=== PATIENT | male | born 1980 | race Caucasian/White ===

== ENCOUNTER 2017-02-05 17:37 | Emergency (ER) | payer OTHER ==
[2017-02-05 17:53] VITALS: O2SAT 99
--- NOTE | 2017-02-05 18:20 | ERPHSYRPT ---
- History of Present Illness Time Seen by Provider: 02/05/17 18:10 Source: patient Exam Limitations: no limitations Patient Subjective Stated Complaint: "bit by a spider on sunday on my right arm" Triage Nursing Assessment: ambulated to room per self. skin w/d, color normal, resp easy. red raised area noted to right forearm. no drainage noted. Timing/Duration: day(s) (3) Quality: painful Severity: moderate Location: extremities Possible Causes: exposure to illness (Staph in home prior.), insect bite ( possibly. ) Modifying Factors: Improves With: scratching Associated Symptoms: swelling/mass/lumps Allergies/Adverse Reactions: codeine Allergy (Verified 02/05/17 17:53) Home Medications: Gabapentin 300 mg PO TID 09/30/15 [History] Sertraline HCl 100 mg [Zoloft 100 MG] 100 mg PO DAILY 09/30/15 [History] Albuterol 8 gm Mdi Hfa [Ventolin Hfa MDI] 2 puffs IH QID 10/01/15 [History ] Omeprazole 20 MG [Prilosec 20 mg] 20 mg PO DAILY 03/23/16 [History] Pnv with Ca,No.72/Iron/FA [Preplus Ca-Fe 27 mg-FA 1 mg Tb] 1 each PO DAILY 03/23 [History] Mesalamine [Pentasa] 1,000 mg PO QID 05/04/16 [History] Carvedilol 3.125 mg [Coreg 3.125 MG] 3.125 mg PO DAILY 02/05/17 [History] Fluticasone/Salmeterol 500/50* [Advair 500-50 Diskus] 1 each IH DAILY [History] Hydrocodone Bit/Acetaminophen [[place] 7.5-325 Tablet] 1 each PO TID 02/05/17 [ History] Tizanidine HCl 4 mg [Zanaflex 4 MG] 8 mg PO TID 02/05/17 [History] Trazodone HCl [Desyrel] 100 mg PO HS 02/05/17 [History] Hx Tetanus, Diphtheria Vaccination/Date Given: No Hx Influenza Vaccination/Date Given: No Hx Pneumococcal Vaccination/Date Given: No Immunizations Up to Date: No - Review of Systems Constitutional: No Symptoms Eyes: No Symptoms Ears, Nose, & Throat: No Symptoms Respiratory: No Symptoms Cardiac: No Symptoms Abdominal/Gastrointestinal: Constipation Musculoskeletal: No Symptoms Skin: Cellulitis Neurological: No Symptoms Psychological: No Symptoms Endocrine: No Symptoms Hematologic/Lymphatic: No Symptoms - Past Medical History Pertinent Past Medical History: Yes Neurological History: Migraines ENT History: No Pertinent History Cardiac History: No Pertinent History Respiratory History: COPD Endocrine Medical History: No Pertinent History Musculoskeletal History: Osteoarthritis GI Medical History: GERD History: No Pertinent History, Other Psycho-Social History: No Pertinent History Male Reproductive Disorders: No Pertinent History Other Medical History: Kidney failure, fractured R knee cap, hip and shoulder. - Past Surgical History Past Surgical History: Yes Neuro Surgical History: No Pertinent History Cardiac: No Pertinent History Respiratory: No Pertinent History Gastrointestinal: No Pertinent History Genitourinary: No Pertinent History Musculoskeletal: No Pertinent History Male Surgical History: No Pertinent History Other Surgical History: DENTAL EXTRACTIONS - Social History Smoking Status: Current every day smoker How long have you smoked: 23 Exposure to second hand smoke: Yes Drug Use: marijuana Patient Lives Alone: No - Nursing Vital Signs Nursing Vital Signs: Initial Vital Signs Temperature 99.3 F Temperature Source Oral Pulse Rate 69 Respiratory Rate 16 Pain Intensity 6 - Physical Exam General Appearance: mild distress Eye Exam: eyes nml inspection Ears, Nose, Throat Exam: normal ENT inspection, pharynx normal Neck Exam: normal inspection, non-tender, supple, full range of motion Respiratory Exam: normal breath sounds, lungs clear Cardiovascular Exam: regular rate/rhythm, normal heart sounds, normal peripheral pulses Gastrointestinal/Abdomen Exam: soft, normal bowel sounds Back Exam: normal inspection, normal range of motion Extremity Exam: normal range of motion, pelvis stable, inflammation, swelling ( 2 cm diameter to right distal wrist. ) Neurologic Exam: alert, oriented x 3, cooperative Skin Exam: warm, dry, other (erythema and tenderness right wrist. No drainage. ) SpO2 Interpretation: normal SpO2: 99 Oxygen Delivery: Room Air - Course Nursing assessment & vital signs reviewed: Yes - Progress Progress: unchanged Discussed with : [place] (PCP 1 week) Will see patient in: office Counseled pt/family regarding: diagnosis, need for follow-up - Departure Time of Disposition: 18:25 Departure Disposition: Home Clinical Impression: Abscess or cellulitis of wrist Condition: Stable Critical Care Time: No Prescriptions: Naproxen 1 tab PO BID #20 tablet Smz/Tmp Ds Tablet [Bactrim Ds Tablet] 1 udtab PO BID #20 tablet
[2017-02-05] MEDS ORDERED: Adacel Vial IM ONE ×2 (18:30→18:33)
[2017-02-05 18:50] VITALS: BP 143/96; PULSE 72
== END 2017-02-05 18:51 | disposition home or self-care (01) ==
LOC: ED 17:37
DX: L02.413 Cutaneous abscess of right upper limb (principal); L03.113 Cellulitis of right upper limb
CPT/HCPCS: 90471; 90715; 99284

== ENCOUNTER 2017-06-17 12:46 | Emergency (ER) | payer OTHER ==
[2017-06-17] MEDS ORDERED: Sodium Chloride 0.9% 1000 ML 1,000 ML IV STA (13:05)
[2017-06-17] MEDS ORDERED: Vistaril 50 MG/ML IM ONE ×2 (13:05→13:18)
[2017-06-17 13:08] VITALS: O2SAT 100
--- NOTE | 2017-06-17 13:12 | ERPHSYRPT ---
- History of Present Illness Time Seen by Provider: 06/17/17 12:56 Source: patient, family (friend) Patient Subjective Stated Complaint: states has had confusion, feels off balance and unable to focus for a couple months. has been off most of his meds for two weeks. states passed out last night and woke up covered in feces and urine. Triage Nursing Assessment: ambulated to room. patient slightly off balance. skin w/d, color normal, resp easy. patient a/o times three. yesika jc without difficulty. Physician History: CC: passed out Hx; 37 y/o patient states he thinks he passed out at home this AM. He awoke on the floor covered in feces and urine. He does not remember what happened. He has felt some dizzines and confused at times. Out of most of his medications for 3 weeks. He has hx of anxiety and depression. No headache, chest pain, or palpitations. He has hx of colitis. He sees Dr Herzog and [facility] in [facility] for chronic degenerative disk disease. No neck or back pain. No known specific injury. No hx of seizures or DM. Denies suicide ideation. Friend states he has been worried about finances. Timing/Duration: today Severity: moderate Allergies/Adverse Reactions: codeine Allergy (Verified 06/17/17 12:58) Home Medications: Gabapentin 300 mg PO TID 09/30/15 [History] Sertraline HCl 100 mg [Zoloft 100 MG] 100 mg PO DAILY 09/30/15 [History] Albuterol 8 gm Mdi Hfa [Ventolin Hfa MDI] 2 puffs IH QID 10/01/15 [History ] Omeprazole 20 MG [Prilosec 20 mg] 20 mg PO DAILY 03/23/16 [History] Pnv with Ca,No.72/Iron/FA [Preplus Ca-Fe 27 mg-FA 1 mg Tb] 1 each PO DAILY 03/23 [History] Mesalamine [Pentasa] 1,000 mg PO QID 05/04/16 [History] Fluticasone/Salmeterol 500/50* [Advair 500-50 Diskus] 1 each IH DAILY [History] Hydrocodone Bit/Acetaminophen [[place] 7.5-325 Tablet] 1 each PO TID 02/05/17 [ History] Tizanidine HCl 4 mg [Zanaflex 4 MG] 8 mg PO TID 02/05/17 [History] Trazodone HCl [Desyrel] 100 mg PO HS 02/05/17 [History] Hx Tetanus, Diphtheria Vaccination/Date Given: Yes (2016) Hx Influenza Vaccination/Date Given: No Hx Pneumococcal Vaccination/Date Given: No - Review of Systems Constitutional: No Fever, No Chills Eyes: No Symptoms Ears, Nose, & Throat: No Symptoms Respiratory: No Cough Cardiac: Syncope, No Chest Pain, No Palpitations Abdominal/Gastrointestinal: No Abdominal Pain, No Nausea, No Vomiting, No Diarrhea Genitourinary Symptoms: Dysuria Musculoskeletal: Back Pain (chronic), No Neck Pain, No Injury Skin: No Rash Neurological: Dizziness, Other (feels confused), No Focal Weakness, No Headache , No Parasthesia Psychological: Anxiety, Depression, No Alcohol Abuse, No Drug Abuse All Other Systems: Reviewed and Negative - Past Medical History Pertinent Past Medical History: Yes Neurological History: Migraines ENT History: No Pertinent History Cardiac History: No Pertinent History Respiratory History: COPD Endocrine Medical History: No Pertinent History Musculoskeletal History: Osteoarthritis GI Medical History: GERD History: No Pertinent History, Other Psycho-Social History: No Pertinent History Male Reproductive Disorders: No Pertinent History Other Medical History: Kidney failure, fractured R knee cap, hip and shoulder. - Past Surgical History Past Surgical History: Yes Neuro Surgical History: No Pertinent History Cardiac: No Pertinent History Respiratory: No Pertinent History Gastrointestinal: No Pertinent History Genitourinary: No Pertinent History Musculoskeletal: No Pertinent History Male Surgical History: No Pertinent History Other Surgical History: DENTAL EXTRACTIONS - Social History Smoking Status: Current every day smoker How long have you smoked: 24 Exposure to second hand smoke: No Drug Use: marijuana Patient Lives Alone: Yes - Nursing Vital Signs Nursing Vital Signs: Initial Vital Signs Temperature 98.6 F 06/17/17 12:51 Pulse Rate 69 06/17/17 12:51 Respiratory Rate 16 06/17/17 12:51 Blood Pressure 174/99 06/17/17 12:51 O2 Sat by Pulse Oximetry 100 06/17/17 12:51 Pain Scale Pain Intensity 9 - Physical Exam General Appearance: alert, thin Eye Exam: PERRL/EOMI Ears, Nose, Throat Exam: normal ENT inspection, moist mucous membranes Neck Exam: normal inspection, non-tender, supple, No midline tenderness Respiratory Exam: normal breath sounds, lungs clear Cardiovascular Exam: regular rate/rhythm, No murmur, No pulse deficit Gastrointestinal/Abdomen Exam: soft, No tenderness, No distention, No mass, No guarding Male Genitalia Exam: normal genitalia, No hernia Back Exam: normal inspection, normal range of motion Extremity Exam: normal inspection, normal range of motion Neurologic Exam: alert, oriented x 3, cooperative, rehabilitation attendant II-XII nml as tested, sensation nml, No motor deficits Skin Exam: warm, dry, No rash SpO2 Interpretation: normal SpO2: 100 - Course Nursing assessment & vital signs reviewed: Yes EKG Interpreted by Me: RATE (64), Sinus Rhythm, NORMAL AXIS, NORMAL INTERVALS ( [id number]. qrs 112), Right Bundle Branch Block (incomplete), NORMAL ST-T - Radiology Exams cxr X-ray Interpretation: Interpreted by me, Negative - CT Exams head CT Interpretation: Negative, Tele-radiologist Report Ordered Tests: Active Orders 24 hr Category Date Time Status Accucheck STAT Care 06/17/17 13:05 Active Aerologist STAT Care 06/17/17 13:05 Active Clean Catch Urine Specimen STAT Care 06/17/17 13:05 Active EKG-ER Only STAT Care 06/17/17 13:05 Active IV Insertion STAT Care 06/17/17 13:05 Active Orthostatic Vital Signs STAT Care 06/17/17 13:05 Active Oxygen-ED Only NON-REBREATHER 100% Care 06/17/17 13:24 Active CHEST 2 VIEWS (PA AND LAT) Stat Exams 06/17/17 13:05 Taken HEAD WITHOUT CONTRAST [CT] Stat Exams 06/17/17 13:06 Taken CBC W DIFF Stat Lab 06/17/17 13:05 Completed CMP Stat Lab 06/17/17 13:20 Completed CULTURE,URINE Stat Lab 06/17/17 14:10 Received ETHYL ALCOHOL Stat Lab 06/17/17 13:20 Completed UA W/ MICROSCOPIC Stat Lab 06/17/17 14:10 Completed Urine Triage Profile Stat Lab 06/17/17 14:00 Completed VENOUS BLOOD GAS Urgent Lab 06/17/17 13:12 Completed Medication Summary Discontinued Medications Generic Name Dose Route Start Last Admin Trade Name Freq PRN Reason Stop Dose Admin Hydroxyzine HCl 50 mg 06/17/17 13:05 06/17/17 13:50 Vistaril 50 Mg/Ml IM 06/17/17 13:06 50 mg STAT ONE Administration Hydroxyzine HCl Confirm 06/17/17 13:18 Vistaril 50 Mg/Ml Administered 06/17/17 13:19 Dose 50 mg IM .STK-MED ONE Sodium Chloride 1,000 mls @ 999 mls/hr 06/17/17 13:05 06/17/17 13:50 Sodium Chloride 0.9% 1000 Ml IV 06/17/17 14:05 999 mls/hr .Q1H1M STA Administration Sodium Chloride Confirm 06/17/17 13:18 Sodium Chloride 0.9% 1000 Ml Administered 06/17/17 13:19 Dose 1,000 mls @ ud .ROUTE .STK-MED ONE Potassium Bicarbonate 50 meq 06/17/17 14:00 06/17/17 14:06 K-Lyte 25 Meq PO 06/17/17 14:01 50 meq STAT ONE Administration Potassium Bicarbonate Confirm 06/17/17 14:03 K-Lyte 25 Meq Administered 06/17/17 14:04 Dose 50 meq .ROUTE .STK-MED ONE Lab/Rad Data: Laboratory Result Diagrams 06/17/17 13:05 06/17/17 13:20 Laboratory Results 06/17/17 06/17/17 06/17/17 Range/Units 14:10 14:00 13:20 WBC (4.0-10.5) K/mm3 RBC (4.1-5.6) M/mm3 Hgb (12.5-18.0) gm/dl Hct (42-50) % MCV (78-100) fl MCH (26-32) pg MCHC (32-36) g/dl RDW (11.5-14.0) % Plt Count (150-450) K/mm3 MPV (6-9.5) fl Gran % (36.0-66.0) % Lymphocytes % (24.0-44.0) % Monocytes % (0.0-12.0) % Eosinophils % (0.00-5.0) % Basophils % (0.0-0.4) % Basophils # (0-0.4) VBG pH (7.32-7.42) VBG pCO2 at Pat Temp (42-55) mm/Hg VBG pO2 at Pat Temp (25-40) mm/Hg VBG HCO3 (22-28) meq/L VBG O2 Sat (Lenny) (95-100) VBG Base Excess (-2.0-2.0) VBG Hemoglobin VBG Carboxyhemoglobin (0.0-6.9) % T HGB POC Potassium (3.5-5.1) Sodium 141 (136-145) mEq/L Potassium 3.1 L (3.5-5.1) mEq/L Chloride 106 (98-107) mEq/L Carbon Dioxide 23.0 (21-32) mEq/L Anion Gap 14.7 (5-15) MEQ/L BUN 8 L (9-20) mg/dL Creatinine 0.85 (0.55-1.30) mg/dl Estimated GFR > 60 ML/MIN Glucose 109 (70-110) MG/DL Calcium 9.1 (8.5-10.1) mg/dL Total Bilirubin 0.30 (0.2-1.0) mg/dL AST 11 L (15-37) U/L ALT 15 (12-78) U/L Alkaline Phosphatase 69 (46-116) U/L Serum Total Protein 7.1 (6.4-8.2) gm/dL Albumin 4.2 (3.4-5.0) g/dL Ur Collection Type VOID Urine Color YELLOW (YELLOW) Urine Appearance CLEAR (CLEAR) Urine pH 6.0 (5-6) Ur Specific [place]ate 1.010 (1.005-1.025) Urine Protein NEGATIVE (Negative) Urine Ketones NEGATIVE (NEGATIVE) Urine Blood NEGATIVE (0-5) Ben/ul Urine Nitrite NEGATIVE (NEGATIVE) Urine Bilirubin NEGATIVE (NEGATIVE) Urine Urobilinogen NORMAL (0-1) mg/dL Ur Leukocyte Esterase TRACE (NEGATIVE) Urine Microscopic RBC 0-2 (0-2) /HPF Urine Microscopic WBC 2-5 (0-5) /HPF Ur Epithelial Cells FEW (FEW) /HPF Urine Bacteria FEW (NEGATIVE) /HPF Urine Glucose NEGATIVE (NEGATIVE) mg/dL Urine Opiates Level NEG. (NEGATIVE) Ur Methadone NEG. (NEGATIVE) Urine Barbiturates NEG. (NEGATIVE) Ur Phencyclidine (PCP) NEG. (NEGATIVE) Urine Amphetamine NEG. (NEGATIVE) U Benzodiazepine Level NEG. (NEGATIVE) Urine Cocaine NEG. (NEGATIVE) Urine Marijuana (THC) POS. (NEGATIVE) Ethyl Alcohol < 0.010 (0.00-0.01) % Specimen Received 06/17/2017 1415 06/17/17 06/17/17 Range/Units 13:12 13:05 WBC 13.0 H (4.0-10.5) K/mm3 RBC 4.17 (4.1-5.6) M/mm3 Hgb 13.8 (12.5-18.0) gm/dl Hct 39.6 L (42-50) % MCV 95.0 (78-100) fl MCH 33.1 H (26-32) pg MCHC 34.8 (32-36) g/dl RDW 12.4 (11.5-14.0) % Plt Count 437 (150-450) K/mm3 MPV 10.4 H (6-9.5) fl Gran % 61.7 (36.0-66.0) % Lymphocytes % 30.1 (24.0-44.0) % Monocytes % 7.3 (0.0-12.0) % Eosinophils % 0.7 (0.00-5.0) % Basophils % 0.2 (0.0-0.4) % Basophils # 0.03 (0-0.4) VBG pH 7.44 H (7.32-7.42) VBG pCO2 at Pat Temp 34 L (42-55) mm/Hg VBG pO2 at Pat Temp 40 (25-40) mm/Hg VBG HCO3 23.1 (22-28) meq/L VBG O2 Sat (Lenny) 89.0 L (95-100) VBG Base Excess -0.5 (-2.0-2.0) VBG Hemoglobin 14.4 VBG Carboxyhemoglobin 11.6 H* (0.0-6.9) % T HGB POC Potassium 3.3 L (3.5-5.1) Sodium (136-145) mEq/L Potassium (3.5-5.1) mEq/L Chloride (98-107) mEq/L Carbon Dioxide (21-32) mEq/L Anion Gap (5-15) MEQ/L BUN (9-20) mg/dL Creatinine (0.55-1.30) mg/dl Estimated GFR ML/MIN Glucose (70-110) MG/DL Calcium (8.5-10.1) mg/dL Total Bilirubin (0.2-1.0) mg/dL AST (15-37) U/L ALT (12-78) U/L Alkaline Phosphatase (46-116) U/L Serum Total Protein (6.4-8.2) gm/dL Albumin (3.4-5.0) g/dL Ur Collection Type Urine Color (YELLOW) Urine Appearance (CLEAR) Urine pH (5-6) Ur Specific Agate (1.005-1.025) Urine Protein (Negative) Urine Ketones (NEGATIVE) Urine Blood (0-5) Ben/ul Urine Nitrite (NEGATIVE) Urine Bilirubin (NEGATIVE) Urine Urobilinogen (0-1) mg/dL Ur Leukocyte Esterase (NEGATIVE) Urine Microscopic RBC (0-2) /HPF Urine Microscopic WBC (0-5) /HPF Ur Epithelial Cells (FEW) /HPF Urine Bacteria (NEGATIVE) /HPF Urine Glucose (NEGATIVE) mg/dL Urine Opiates Level (NEGATIVE) Ur Methadone (NEGATIVE) Urine Barbiturates (NEGATIVE) Ur Phencyclidine (PCP) (NEGATIVE) Urine Amphetamine (NEGATIVE) U Benzodiazepine Level (NEGATIVE) Urine Cocaine (NEGATIVE) Urine Marijuana (THC) (NEGATIVE) Ethyl Alcohol (0.00-0.01) % Specimen Received - Progress Progress Note: 06/17/17 15:07 The patient is table. Was given NRB oxygen for 2 hours. Likely CO is from smoking but advised check house before staying there. Advised no driving, follow up with Dr Herzog this week. He was given K here. Unsure if this was syncope, seizure or some other event. Counseled pt/family regarding: lab results, diagnosis, need for follow-up, rad results, smoking cessation - Departure Time of Disposition: 15:08 Departure Disposition: Home Clinical Impression: Syncope Qualifiers: Encounter type: initial encounter Condition: Stable Critical Care Time: No Referrals: ADITYA HERZOG MD [Primary Care Provider] - Instructions: Fainting Additional Instructions: No driving. Follow up with Dr Herzog this week. Eat bananas and drink plenty of fluids. Return for problems or concerns. Stop smoking and have your house checked for carbon monoxide before staying there.
[2017-06-17] MEDS ORDERED: Sodium Chloride 0.9% 1000 ML 1,000 ML ONE (13:18)
[2017-06-17 13:21] LABS: VBG BASE EXCESS -0.5 (-2.0-2.0); VBG HCO3- 23.1 meq/L (22-28); VBG HEMOGLOBIN 14.4; VBG POTASSIUM 3.3 (3.5-5.1); VBG pH 7.44 (7.32-7.42)
[2017-06-17 13:22] LABS: VBG CARBOXYHEMOGLOBIN 11.6 % T HGB (0.0-6.9)
[2017-06-17 13:39] LABS: BASOPHIL % 0.2 % (0.0-0.4); Eosinophil % 0.7 % (0.00-5.0); Granulocytes % 61.7 % (36.0-66.0); Lymphocytes % 30.1 % (24.0-44.0); Mean Corpuscular Hemoglobin 33.1 pg (26-32); Mean Platelet Volume 10.4 fl (6-9.5); Monocytes % 7.3 % (0.0-12.0); Platelet Count 437 K/mm3 (150-450); Red Blood Count 4.17 M/mm3 (4.1-5.6); Red Cell Distribution Width 12.4 % (11.5-14.0)
[2017-06-17 13:55] LABS: ALBUMIN 4.2 g/dL (3.4-5.0); ALKALINE PHOSPHATASE 69 U/L (46-116); ANION GAP 14.7 MEQ/L (5-15); BLOOD UREA NITROGEN 8 mg/dL (9-20); CHLORIDE 106 mEq/L (98-107); ETHYL ALCOHOL < 0.010 % (0.00-0.01); Glucose 109 MG/DL (70-110); Potassium 3.1 mEq/L (3.5-5.1); SGOT/AST 11 U/L (15-37); SGPT/ALT 15 U/L (12-78); SODIUM 141 mEq/L (136-145); Total Protein 7.1 gm/dL (6.4-8.2)
[2017-06-17] MEDS ORDERED: K-LYTE 25 MEQ PO ONE (14:00)
[2017-06-17] MEDS ORDERED: K-LYTE 25 MEQ ONE (14:03)
[2017-06-17 14:24] LABS: Collection Type VOID
[2017-06-17 14:25] LABS: ADD URINE CULTURE? YES (NO); Bacteria FEW /HPF (NEGATIVE); Bilirubin NEGATIVE (NEGATIVE); Blood NEGATIVE Ery/ul (0-5); COMPLETE URINE MICROSCOPIC? YES; Epithelial Cells FEW /HPF (FEW); Glucose NEGATIVE (NEGATIVE); Leukocyte Esterase TRACE (NEGATIVE)
[2017-06-17 15:16] VITALS: BP 159/85; PULSE 68
--- NOTE | 2017-06-18 08:31 | XRAY ---
Indication: Syncope. Comparison: July 12, 2015. AP/lateral chest again demonstrates hyperinflated clear lungs with a few incidental calcified granulomas. Heart is not enlarged. Bony thorax intact. No new/acute findings. Impression: Stable nonacute chest with chronic features.
--- NOTE | 2017-06-18 08:31 | XRAY ---
Indication: Syncope. Multiple contiguous axial images obtained through the head without contrast. Comparison: None Normal appearing brain parenchyma, ventricles, and bony calvarium. Visualized paranasal sinuses and mastoid air cells are clear. Impression: Normal CT head without contrast exam. Comment: Preliminary interpretation was made by [facility]. No discrepancy. CT DI 69.11
== END 2017-06-17 15:23 | disposition home or self-care (01) ==
LOC: ED 12:46
DX: R55 Syncope and collapse (principal); R41.0 Disorientation, unspecified
CPT/HCPCS: 36000; 36415; 70450; 71020; 80053; 80307; 81000; 82805; 82962; 85025; 87086; 93005; 93041; 96360; 96372; 99284; 99285; G0481; J3410; A9270-GY

== ENCOUNTER 2017-10-13 11:04 | Emergency (ER) | payer OTHER ==
[2017-10-13] MEDS ORDERED: Ciloxan OPHTH OP ONE (11:23)
--- NOTE | 2017-10-13 11:31 | ERPHSYRPT ---
- History of Present Illness Time Seen by Provider: 10/13/17 11:24 Source: patient Exam Limitations: no limitations Patient Subjective Stated Complaint: left eye swelling for two days. denies any injury Triage Nursing Assessment: left eye red and very swollen. no drainage noted. Physician History: 29-year-old white male arrives with complaint of swelling of his left upper eyelid for 2-3 days he states he has burning whenever he opens his left eye he denies any injury states he just woke up this way. He states he has some blurry vision just because of burning when he opens his eye. He has not had any drainage no fevers. Past medical history includes migraines, COPD, osteoarthritis, GERD, kidney failure, fractured right knee, hip, shoulder. Degenerative disc disease Past surgical history includes dental extraction. Timing/Duration: yesterday Severity: moderate Apparent Injury: no Associated Symptoms: pain, burning, eyelid swelling (upper eyelid swelling and erythema), blurred vision Visual Assistive Devices: Glasses Chemical Exposure: No Trauma: No Allergies/Adverse Reactions: codeine Allergy (Verified 10/13/17 11:32) Home Medications: Gabapentin 300 mg PO TID 09/30/15 [History] Sertraline HCl 100 mg [Zoloft 100 MG] 100 mg PO DAILY 09/30/15 [History] Albuterol 8 gm Mdi Hfa [Ventolin Hfa MDI] 2 puffs IH QID 10/01/15 [History ] Omeprazole 20 MG [Prilosec 20 mg] 20 mg PO DAILY 03/23/16 [History] Pnv,Calcium 72/Iron/Folic Acid [Preplus Ca-Fe 27 mg-FA 1 mg Tb] 1 each PO DAILY 03/23/16 [History] Mesalamine [Pentasa] 1,000 mg PO QID 05/04/16 [History] Fluticasone/Salmeterol 500/50* [Advair 500-50 Diskus] 1 each IH DAILY [History] Hydrocodone Bit/Acetaminophen [Clifford 7.5-325 Tablet] 1 each PO TID 02/05/17 [ History] Tizanidine HCl 4 mg [Zanaflex 4 MG] 8 mg PO TID 02/05/17 [History] Trazodone HCl [Desyrel] 100 mg PO HS 02/05/17 [History] Hx Tetanus, Diphtheria Vaccination/Date Given: Yes (2016) Hx Influenza Vaccination/Date Given: No Hx Pneumococcal Vaccination/Date Given: No - Review of Systems Constitutional: No Fever, No Chills Eyes: Eye Pain, Vision Changes (blurry left eye), Other (burning left eye swollen left upper eyelid) Ears, Nose, & Throat: No Symptoms Respiratory: No Cough, No Dyspnea Cardiac: No Chest Pain, No Edema, No Syncope Abdominal/Gastrointestinal: No Abdominal Pain, No Nausea, No Vomiting, No Diarrhea Genitourinary Symptoms: No Dysuria Musculoskeletal: No Back Pain, No Neck Pain Skin: Other (left upper eye lid swollen and erythematous), No Rash Neurological: No Dizziness, No Focal Weakness, No Sensory Changes Psychological: No Symptoms Endocrine: No Symptoms All Other Systems: Reviewed and Negative - Past Medical History Pertinent Past Medical History: Yes Neurological History: Migraines ENT History: No Pertinent History Cardiac History: No Pertinent History Respiratory History: COPD Endocrine Medical History: No Pertinent History Musculoskeletal History: Osteoarthritis GI Medical History: GERD History: No Pertinent History, Other Psycho-Social History: No Pertinent History Male Reproductive Disorders: No Pertinent History Other Medical History: Kidney failure, fractured R knee cap, hip and shoulder. - Past Surgical History Past Surgical History: Yes Neuro Surgical History: No Pertinent History Cardiac: No Pertinent History Respiratory: No Pertinent History Gastrointestinal: No Pertinent History Genitourinary: No Pertinent History Musculoskeletal: No Pertinent History Male Surgical History: No Pertinent History Other Surgical History: DENTAL EXTRACTIONS - Social History Smoking Status: Current every day smoker How long have you smoked: 24 Exposure to second hand smoke: No Drug Use: marijuana Patient Lives Alone: Yes - Nursing Vital Signs Nursing Vital Signs: Initial Vital Signs Temperature 98.1 F 10/13/17 11:11 Pulse Rate 77 10/13/17 11:11 Respiratory Rate 16 10/13/17 11:11 Blood Pressure 157/95 10/13/17 11:11 O2 Sat by Pulse Oximetry 98 10/13/17 11:11 Pain Scale Pain Intensity 7 - Physical Exam General Appearance: mild distress Vision Acuity Degree Evaluation Phase: Corrected Vision Acuity Right Eye: 20/20 Vision Acuity Left Eye: 20/70 Eye Exam: right eye: normal inspection, PERRL, EOMI, bilateral eye: other (Eyes perrla, eomi, fundi unremarkable left upper eyelid erythematous and edematous , both sclera white , conjunctiva not inflammed . 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 nml as tested, normal mood/affect Skin Exam: other (left upper eyelid edematous and erythematous) SpO2 Interpretation: normal (98%) SpO2: 98 Oxygen Delivery: Room Air - Course Nursing assessment & vital signs reviewed: Yes Ordered Tests: Active Orders 24 hr Category Date Time Status Visual Acuity STAT Care 10/13/17 11:23 Active Medication Summary Discontinued Medications Generic Name Dose Route Start Last Admin Trade Name Charlette PRN Reason Stop Dose Admin Ciprofloxacin 2.5 ml 10/13/17 11:23 10/13/17 11:32 Ciloxan Ophth OP 10/13/17 11:24 2.5 ml STAT ONE Administration Ciprofloxacin Confirm 10/13/17 11:32 Ciloxan Ophth Administered 10/13/17 11:33 Dose 2.5 ml .ROUTE .[employer]-MED ONE - Progress Progress: improved Progress Note: 10/13/17 11:33 37-year-old white male arrives with complaint of edema and erythema to his left upper eyelid since yesterday states he woke up with it this way he has been having burning sensation when he opens his eye he denies any injury denies any exposures. On physical examination eyes PERRLA EOMI fundi are unremarkable. Left upper eyelid is edematous and erythematous. There are no foreign bodies in either eye both sclera are white both conjunctiva unremarkable. Vision as recorded by the patient's nurse. Will Place., ciprofloxacin 0.3% 2 drops in the left eye one to 2 drops left eye 4 times a day for 5 days. Also will have patient began Benadryl 25-50 mg orally every 6 hours for 2-3 days as needed. Patient to use cold packs to the left upper eyelid 24 hours. He is to follow-up with his family doctor or gold miner if symptoms are worse, no better in 24 hours or persist longer than 48 hours. Return for acute distress or for severe symptoms 10/13/17 11:37 - Departure Time of Disposition: 11:35 Departure Disposition: Home Clinical Impression: Blepharitis, left eye Qualifiers: Blepharitis type: unspecified type Eyelid: upper Qualified Code(s): H01.004 - Unspecified blepharitis left upper eyelid Condition: Fair Critical Care Time: No Referrals: ADITYA HERZOG MD [Primary Care Provider] - Additional Instructions: Return home. Cold packs left upper eyelid 24 hours. ciprofloxin drops 1-2 drops left eye 4 times a day for 5 days. Benadryl 25-50 mg orally every 6 hours as needed for one to 2 days. Follow-up with your family doctor or gold miner if symptoms worse no better in 24 hours or persist longer than 48 hours. Return for acute distress or for severe symptoms.
[2017-10-13] MEDS ORDERED: Ciloxan OPHTH ONE (11:32)
[2017-10-13 11:56] VITALS: BP 140/89; PULSE 74; O2SAT 97
[2017-10-13] MEDS ORDERED: DUONEB 0.5-3 MG/3 ml Neb IH ONE (12:03)
== END 2017-10-13 12:02 | disposition home or self-care (01) ==
LOC: ED 11:04
DX: H01.004 Unspecified blepharitis left upper eyelid (principal)
CPT/HCPCS: 99283; A9270-GY